=== PATIENT | female | born 1935 | race Caucasian/White ===

== ENCOUNTER 2017-12-28 17:17 | Emergency (ER) | payer MEDICARE, BC ==
[2017-12-28 17:18] VITALS: BMI 24.7
--- NOTE | 2017-12-28 17:46 | ED PDOC ---
Arrival/HPI - General Chief Complaint: Back Pain Time Seen by Provider: 12/28/17 17:21 Historian: Patient - History of Present Illness Narrative History of Present Illness (Text): 12/28/17 17:40 82yo female with history of chronic back pain present with complaint of left sided lower back pain that radiates to her lower leg x months. Notes that the pain started 8months ago. she saw Orthopedist who referred her to a pain management. States she was by Dr. Ku and was injected with unknown medication in the area 3months ago. States her pain became worse after the injection and she has been on Tramadol for the pain.. States the pain became worse the past few weeks and she came to emergency department for the pain. Pain is described as crampy and sharp. Pain is usually with ambulation and movement. Denies recent trauma, abdominal pain, urinary symptoms, focal/urinary incontinence, focal weakness, saddle anesthesia, fever, chills, any other complaint. Past Medical History - Provider Review Nursing Documentation Reviewed: Yes - Infectious Disease Hx of Infectious Diseases: None - Reproductive Menopause: Yes - Cardiac Hx Cardiac Disorders: No Hx Pacemaker: No - Neurological Hx Paralysis: No - Hematological/Oncological Hx Blood Transfusions: No - Musculoskeletal/Rheumatological Hx Musculoskeletal Disorders: Yes - Genitourinary/Gynecological Hx Genitourinary Disorders: No - Psychiatric Hx Psychophysiologic Disorder: No Hx Anxiety: No Hx Bipolar Disorder: No Hx Depression: No Hx Emotional Abuse: No Hx Hallucinations: No Hx Panic Disorder: No Hx Post Traumatic Stress Disorder: No Hx Psychosis: No Hx Physical Abuse: No Hx Schizophrenia: No Hx Sexual Abuse: No Hx Substance Use: No - Anesthesia Hx Anesthesia: Yes Hx Anesthesia Reactions: No Hx Malignant Hyperthermia: No - Suicidal Assessment Feels Threatened In Home Enviroment: No Family/Social History - Physician Review Nursing Documentation Reviewed: Yes Family/Social History: Unknown Family HX Smoking Status: Never Smoked Hx Alcohol Use: No Hx Substance Use: No Allergies/Home Meds Allergies/Adverse Reactions: Allergies No Known Allergies Allergy (Verified 12/28/17 17:31) Home Medications: Home Meds Medication Instructions Recorded Confirmed Folic Acid 3 mg PO DAILY 12/28/17 12/28/17 traMADol [Ultram] 50 mg PO PRN PRN 12/28/17 12/28/17 Review of Systems - Physician Review All systems were reviewed & negative as marked: Yes - Review of Systems Constitutional: Normal Eyes: Normal ENT: Normal Respiratory: Normal Cardiovascular: Normal Gastrointestinal: Normal Genitourinary Female: Normal Musculoskeletal: Normal, Back Pain Skin: Normal Neurological: Normal Endocrine: Normal Hemo/Lymphatic: Normal Psychiatric: Normal Physical Exam Vital Signs Reviewed: Yes Vital Signs Temp Pulse Resp BP Pulse Ox 12/28/17 17:22 98.2 F 95 H 18 163/70 H 97 Temperature: Afebrile Blood Pressure: Normal Pulse: Regular Respiratory Rate: Normal Appearance: Positive for: Well-Appearing, Non-Toxic, Comfortable Pain Distress: None Mental Status: Positive for: Alert and Oriented X 3 - Systems Exam Head: Present: Atraumatic, Normocephalic Pupils: Present: PERRL Extroacular Muscles: Present: EOMI Conjunctiva: Present: Normal Mouth: Present: Moist Mucous Membranes Neck: Present: Normal Range of Motion Respiratory/Chest: Present: Clear to Auscultation, Good Air Exchange. No: Respiratory Distress, Accessory Muscle Use Cardiovascular: Present: Regular Rate and Rhythm, Normal S1, S2. No: Murmurs Abdomen: No: Tenderness, Distention, Peritoneal Signs Back: No: Midline Tenderness, Paraspinal Tenderness, Pain with Leg Raise Upper Extremity: Present: Normal Inspection. No: Cyanosis, Edema Lower Extremity: Present: Normal Inspection. No: Edema Neurological: Present: GCS=15, CN II-XII Intact, Speech Normal Skin: Present: Warm, Dry, Normal Color. No: Rashes Psychiatric: Present: Alert, Oriented x 3, Normal Insight, Normal Concentration Medical Decision Making ED Course and Treatment: 12/28/17 19:24 PT in emergency department for stated history. She was ambulatory and neurologically intact. Her pain was controlled in emergency department . LS xray and B/L hip xray - DJD Urinalysis was negative Result was DW the pt. she is already under a care of a pain management Doctor and orthopedist. she was DC home with Lidoderm and was referred to her PMD. - Lab Interpretations Lab Results: Lab Results 12/28/17 17:40: Urine Color Yellow, Urine Appearance Clear, Urine pH 6.0, Ur Specific [place] >= 1.030, Urine Protein Negative, Urine Glucose (UA) Negative, Urine Ketones Negative, Urine Blood Negative, Urine Nitrate Negative, Urine Bilirubin Negative, Urine Urobilinogen 0.2, Ur Leukocyte Esterase Negative - RAD Interpretation Radiology Orders: 12/28/17 17:31 Hip Bilateral [HIP MIN 3V W/ PELVIS LEO] [RAD] Stat LS SPINE WITH OBL > 18 YRS OLD [RAD] Stat - Medication Orders Current Medication Orders: Discontinued Medications Diazepam (Valium) 2 mg PO ONCE ONE PRN Reason: Protocol Stop: 12/28/17 17:33 Last Admin: 12/28/17 18:19 Dose: 2 mg Ketorolac Tromethamine (Toradol) 60 mg IM STAT STA Stop: 12/28/17 17:33 Last Admin: 12/28/17 18:18 Dose: 60 mg MAR Pain Assessment Document 12/28/17 18:18 SF (Rec: 12/28/17 18:19 [id number] Pain Reassessment Is this a pain reassessment? Yes Sleep Is patient sleeping during reassessment? No Presence of Pain Presence of Pain Yes Pain Scale Used Pain Scale Used Numeric Location Left, Right or Bilateral Left Upper or Lower Lower Pain Location Body Site Back Description Description Constant IM Administration Charges Document 12/28/17 18:18 SF (Rec: 12/28/17 18:19 SF [facility] [id number]) Injection Site MAR Injection Site Left Deltoid Charges for Administration # of IM Administrations 1 Disposition/Present on Arrival - Present on Arrival Any Indicators Present on Arrival: No History of DVT/PE: No History of Uncontrolled Diabetes: No Urinary Catheter: No History of Decub. Ulcer: No History Surgical Site Infection Following: None - Disposition Have Diagnosis and Disposition been Completed?: Yes Diagnosis: Back pain, Sciatica Disposition: HOME/ ROUTINE Disposition Time: 19:10 Patient Plan: Discharge Condition: STABLE Discharge Instructions (ExitCare): Sciatica (DC), Sciatica Exercises Additional Instructions: Follow up with your doctor/Pain management Return to emergency department for any new or worsening symptoms Prescriptions: Lidocaine 5% [Lidoderm] 1 ea TD BID #10 patch Referrals: [facility] [Outside] - Follow up with primary Forms: [facility] ([place])
[2017-12-28 18:02] LABS: URINE BILIRUBIN NEGATIVE (NEGATIVE); URINE BLOOD NEGATIVE (NEGATIVE); URINE GLUCOSE (UA) NEGATIVE (NEGATIVE); URINE LEUKOCYTE ESTERASE NEGATIVE Leu/uL (NEGATIVE); URINE PROTEIN NEGATIVE mg/dL (<30 mg/dL); URINE UROBILINOGEN 0.2 E.U./dL (<1 E.U./dL)
[2017-12-28 18:03] LABS: URINE APPEARANCE CLEAR (CLEAR); URINE COLOR YELLOW (YELLOW)
[2017-12-28 19:24] VITALS: BP 155/72; PULSE 89; RESP 17; TEMP 98; O2SAT 98
--- NOTE | 2017-12-29 10:12 | RAD ---
Date of service: 12/28/2017 PROCEDURE: Radiographs of the Lumbar Spine. HISTORY: Left sided back pain COMPARISON: No prior. FINDINGS: BONES: There is mild levoscoliosis in the lumbar spine. There is mild degenerative anterior listhesis of L4 on L5. There is normal lumbar lordosis. There is no acute fracture, spondylolysis or spondylolisthesis. There is diffuse bone demineralization. DISC SPACES: There is mild multilevel degenerative disc disease with anterior spurring, reduced disc heights and multilevel facet arthropathy, worse at L4-5 disc. OTHER FINDINGS: There are advanced atherosclerotic calcifications in the abdominal IMPRESSION: No acute fracture. Mild multilevel degenerative disc disease, worse at L4-5.
--- NOTE | 2017-12-29 10:20 | RAD ---
PROCEDURE: Radiographs of the pelvis and bilateral hips HISTORY: left gluteus pain COMPARISON: None. FINDINGS: BONES: The pelvic ring is intact. There is no acute displaced fracture or bone destruction. JOINTS: The hip joint spaces are preserved. 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 SOFT TISSUES: There is a small calcification in the left iliac rim. Otherwise the periarticular soft tissues are normal. OTHER FINDINGS: None. IMPRESSION: No acute fracture or dislocation.
== END 2017-12-28 19:24 | disposition home or self-care (01) ==
LOC: ED 17:17
DX: M54.5 Low back pain (principal); M54.30 Sciatica, unspecified side
CPT/HCPCS: 72110; 73522; 81003; 96372; 99284; J1885